=== PATIENT | female | born 1975 | race Caucasian/White ===

== ENCOUNTER 2020-08-15 05:36 | Emergency (ER) | payer SELFPAY ==
[2020-08-15] MEDS ORDERED: Acetaminophen 500 MG TAB ONE (06:06)
[2020-08-15 06:35] LABS: Bilirubin Neg (Negative); Blood, Urine 50 (Negative); Clarity Clear (Clear); Glucose, Urine (Dipstick) Normal (Negative); Ketone, Urine Negative (Negative); Leukocyte Negative (Negative); Nitrite Negative (Negative); Protein, Urine (Dipstick) Negative (Neg-Trace); Specific Gravity, Urine 1.005 (1.002-1.036); Urobilinogen Normal mg/dL (Less than 2)
[2020-08-15 06:36] LABS: Pregnancy Test - Urine (BHCG) Negative (Negative); Pregu Control Background? CLEAR/WHITE (CLR/WHITE); Pregu Control Bar Appear? YES (CONTROL BAR); Specific Gravity 1.005 (1.002-1.036)
[2020-08-15 06:45] LABS: Bacteria/HPF None Seen HPF (None Seen); Squamous Epithelial 0-3 HPF (0-3); WBC/HPF None Seen HPF (0-3)
[2020-08-15 12:53] LABS: SARS-CoV-2 PCR by NAA Not Detected (NotDetected)
== END 2020-08-15 07:01 | disposition home or self-care (01) ==
LOC: CSHERS 05:36
DX: J32.9 Chronic sinusitis, unspecified (principal); B97.89 Other viral agents as the cause of diseases classified elsewhere; Z20.822 Contact with and (suspected) exposure to COVID-19; R31.9 Hematuria, unspecified
CPT/HCPCS: 81003; 81015; 81025; 87635; 99283; U0003; U0005

== ENCOUNTER 2020-12-28 03:59 | Emergency (ER) | payer SELFPAY ==
[2020-12-28] MEDS ORDERED: Ibuprofen 200 MG TAB ONE (05:18)
[2020-12-28 21:15] LABS: SARS-CoV-2 PCR by NAA Not Detected (NotDetected)
== END 2020-12-28 07:10 | disposition home or self-care (01) ==
LOC: CSHERS 03:59
DX: J06.9 Acute upper respiratory infection, unspecified (principal); H65.91 Unspecified nonsuppurative otitis media, right ear; F17.290 Nicotine dependence, other tobacco product, uncomplicated; Z20.822 Contact with and (suspected) exposure to COVID-19
CPT/HCPCS: 87081; 87430; 99283; U0003; U0005

== ENCOUNTER 2021-06-19 22:22 | Emergency (ER) | payer MEDICAID, SELFPAY ==
[2021-06-20] MEDS ORDERED: Boostrix 0.5 ML (Tdap) VIAL ONE (00:31)
[2021-06-20] MEDS ORDERED: Rabies Vaccine Human 2.5 UNITS VIAL ONE (00:31)
== END 2021-06-20 01:36 | disposition home or self-care (01) ==
LOC: CSHERS 22:22
DX: S91.352A Open bite, left foot, initial encounter (principal); L03.116 Cellulitis of left lower limb; Z79.899 Other long term (current) drug therapy; F17.290 Nicotine dependence, other tobacco product, uncomplicated; W55.01XA Bitten by cat, initial encounter
CPT/HCPCS: 90375; 90471; 90472; 90675; 90715; 96372; 99283